=== PATIENT | male | born 2000 | race African-American/Black ===

== ENCOUNTER 2018-11-18 11:57 | Outpatient (CLI) | payer OTHER | END 2018-11-18 11:58 | disposition critical access hospital (66) | LOC: EMS 11:57 | PROVIDERS: ATTEND Surgery | DX: R06.00 Dyspnea, unspecified (principal); R07.9 Chest pain, unspecified; R19.7 Diarrhea, unspecified | CPT/HCPCS: A0425; A0427 ==

== ENCOUNTER 2018-11-18 12:28 | Emergency (ER) | payer OTHER ==
[2018-11-18] MEDS ORDERED: IOVERSOL 320 100 ML VIAL IVP ONE ×4 (12:29→17:03)
--- NOTE | 2018-11-18 12:41 | ED Physician Documentation ---
History of Present Illness - Stated complaint Stated Complaint: DIFF BREATHING - History obtained from History obtained from: Patient - History of Present Illness Timing: Prior to arrival - Additonal information Additional information: Patient is a previously healthy 18-year-old [place] and mild hypoxia. Patient denies any history of asthma or other pulmonary issues. Patient states that he was generally feeling unwell over the last day or so and thought he may have had a panic attack last night and therefore [place] Patient reports productive cough, difficulty breathing, but no fever, chills, or chest pain. Patient also denies abdominal pain or urinary changes, but reports mild diarrhea.Patient received nebulizer treatment in route, which he reports improved his symptoms.No other improving or worsening factors noted. Review of Systems Constitutional: denies: Fever Respiratory: reports: Dyspnea, Cough GI: reports: Diarrhea. denies: Abdominal Pain, Vomiting : denies: Dysuria PD PAST MEDICAL HISTORY - Past Medical History Past Medical History: No - Past Surgical History Past Surgical History: No - Present Medications Home Medications: Ambulatory Orders Medication Instructions Recorded Confirmed Azithromycin 250 mg PO DAILY 4 Days #4 tab 11/18/18 - Allergies Allergies/Adverse Reactions: Allergies Allergy/AdvReac Type Severity Reaction Status Date / Time No Known Drug Allergies Allergy Verified 11/18/18 12:42 PD ED PE NORMAL - Vitals Vital signs reviewed: Yes - General General: Alert and oriented X 3, No acute distress, Well developed/nourished, Other (Speaking in full sentences) - HEENT HEENT: Atraumatic, Moist mucous membranes, Pharynx benign - Cardiac Cardiac: RRR, No murmur - Respiratory Respiratory: No respiratory distress. No: Clear bilaterally (Breath sounds present bilaterally but with significant expiratory wheezing throughout) - Abdomen Abdomen: Soft, Non tender, Non distended - Derm Derm: Normal color, Warm and dry, No rash - Extremities Extremities: No deformity, No tenderness to palpate - Neuro Neuro: Alert and oriented X 3, No motor deficit, No sensory deficit - Psych Psych: Normal mood, Normal affect Results - Vitals Vitals: Vital Signs - 24 hr 11/18/18 11/18/18 11/18/18 12:39 13:20 13:24 Temperature 37.2 C Heart Rate 103 H 100 96 Respiratory 28 H 15 21 Rate Blood Pressure 156/75 H O2 Saturation 90 L 95 11/18/18 11/18/18 11/18/18 14:20 14:34 14:39 Temperature 36.7 C Heart Rate 89 86 Respiratory 20 19 Rate Blood Pressure 146/61 H O2 Saturation 90 L 94 11/18/18 11/18/18 11/18/18 16:00 17:03 17:26 Temperature Heart Rate 93 89 Respiratory 18 18 Rate Blood Pressure 146/89 H 141/94 H O2 Saturation 93 92 92 Oxygen O2 Source Nasal cannula Oxygen Flow Rate 3 - EKG (time done) 1234 Rate: Rate (enter#) (103) Rhythm: NSR Ischemia: Non specific changes - Labs Labs: Laboratory Tests 11/18/18 11/18/18 11/18/18 14:30 14:30 14:30 WBC 17.2 H RBC 5.23 Hgb 16.3 Hct 45.3 MCV 86.6 MCH 31.2 H MCHC 36.0 RDW 12.8 Plt Count 262 MPV 12.2 H Neut # (Auto) 13.8 H Lymph # (Auto) 2.2 [place] # (Auto) 0.7 Eos # (Auto) 0.2 Baso # (Auto) 0.1 Absolute Nucleated RBC 0.00 Nucleated RBC % 0.0 Sodium 138 Potassium 3.8 Chloride 105 Carbon Dioxide 24 Anion Gap 9.0 BUN 14 Creatinine 1.1 Estimated GFR (MDRD) 103 Glucose 97 Calcium 9.4 Total Bilirubin 1.4 H AST 22 ALT 20 Alkaline Phosphatase 46 Troponin I < 0.04 Total Protein 8.0 Albumin 4.3 Globulin 3.7 Albumin/Globulin Ratio 1.2 Lipase 24 PD MEDICAL DECISION MAKING - ED course Complexity details: reviewed results, re-evaluated patient, considered differential, d/w patient ED course: Patient presenting with hypoxia and difficulty breathing without known exposures, although patient later admits to usage of vape and tobacco. Patient denies history of asthma, but has significant wheezing both inspiratory and expiratory on exam. Patient received an nebulizer treatment in route and received several more in addition to magnesium and Solu-Medrol in the ED. Chest x-ray found inflammatory changes likely reactive. Patient continued to require supplemental oxygen and given his continued knee, felt appropriate to further evaluate. EKG did not find evidence of ischemic changes. Screening lab work including troponin returned relatively unremarkable except for leukocytosis. CT angios chest obtained to further evaluate for etiologies including PE. CT found evidence of bilateral patchy infiltrates, but no PE.Patient started on both Cipro and azithromycin in the ED and eventually weaned off of oxygen. Discussed results and recommendations with patient including use of antibiotics at home, strict return precautions, and need for close follow-up with his primary care physician. Patient voiced understanding and is comfortable with discharge plan. Departure - Departure Disposition: 01 Home, Self Care Clinical Impression: Pneumonia Qualifiers: Pneumonia type: due to unspecified organism Laterality: bilateral Lung location: unspecified part of lung Qualified Code(s): J18.9 - Pneumonia, unspecified organism Condition: Good Instructions: ED Pneumonia Adult Follow-Up: your,doctor [Other] - Within 3 Days Prescriptions: Azithromycin 250 mg PO DAILY 4 Days #4 tab Comments: Please start taking azithromycin as prescribed tomorrow as you have received your antibiotics for today in the ED. Please follow-up closely with your primary care physician in the next 1 to 2 days. Return to ED sooner if experience any worsening symptoms or have other concerns.
[2018-11-18] MEDS ORDERED: MAGNESIUM SULFATE 2 GRAM 2 GM/50 ML BAG IV ONE (12:51)
[2018-11-18] MEDS ORDERED: IPRATROPIUM/ALBUTEROL 3 ML NEB INH STA ×2 (12:51→14:24)
[2018-11-18] MEDS ORDERED: methylPREDNISolone SUCCINATE 125 MG/2 ML VIAL IVP STA (12:52)
--- NOTE | 2018-11-18 13:29 | XRAY Report ---
Reason: cough Procedure Date: 11/18/2018 Accession Number: [id number] / [id number] Procedure: XR - Chest 2 View X-Ray CPT Code: 46932 FULL RESULT: EXAM: CHEST RADIOGRAPHY EXAM DATE: 11/18/2018 01:21 PM. CLINICAL HISTORY: Cough. COMPARISON: None. TECHNIQUE: 2 views. FINDINGS: Lungs/Pleura: Bilateral airway thickening can be seen in the setting of bronchiolitis or reactive airways disease. No focal lung parenchymal consolidation identified to suggest superimposed pneumonia. No pleural effusion or pneumothorax. Mediastinum: There is increasing density in both hilar regions suggestive of adenopathy. There is no cardiomegaly. Other: None. IMPRESSION: Radiograph suggestive of airway thickening and bilateral lymphadenopathy. RADIA
[2018-11-18 14:54] LABS: BASOPHILS # (AUTO) 0.1 10^3/uL (0.0-0.1); BASOPHILS % (AUTO) 0.8 %; EOSINOPHILS # (AUTO) 0.2 10^3/uL (0.0-0.7); EOSINOPHILS % (AUTO) 1.3 %; HGB - HEMOGLOBIN 16.3 g/dL (14.0-18.0); LYMPHOCYTES # (AUTO) 2.2 10^3/uL (1.5-3.5); LYMPHOCYTES % (AUTO) 12.6 %; MEAN CORPUSCULAR HEMOGLOBIN 31.2 pg (27.0-31.0); MEAN CORPUSCULAR VOLUME 86.6 fL (80.0-94.0); MEAN PLATELET VOLUME 12.2 fL (7.4-11.4); MONOCYTES # (AUTO) 0.7 10^3/uL (0.0-1.0); MONOCYTES % (AUTO) 4.3 %; NEUTROPHILS # (AUTO) 13.8 10^3/uL (1.5-6.6); NEUTROPHILS % (AUTO) 80.4 %; PLT - PLATELET COUNT 262 10^3/uL (130-450); RED BLOOD COUNT 5.23 10^6/uL (4.70-6.10); RED CELL DISTRIBUTION WIDTH 12.8 % (12.0-15.0); WHITE BLOOD COUNT 17.2 x10^3/uL (4.8-10.8)
[2018-11-18 15:20] LABS: ALBUMIN 4.3 g/dL (3.2-5.5); ALBUMIN/GLOBULIN RATIO 1.2 (1.0-2.2); BILIRUBIN,TOTAL 1.4 mg/dL (0.2-1.0); CALCIUM 9.4 mg/dL (8.5-10.3); CREATININE 1.1 mg/dL (0.6-1.2)
--- NOTE | 2018-11-18 16:45 | CT Report ---
Reason: SOB, hypoxia, concern for PE Procedure Date: 11/18/2018 Accession Number: [id number] / [id number] Procedure: CT - ANGIO CHEST W/WO CPT Code: FULL RESULT: EXAM: CT ANGIOGRAM CHEST EXAM DATE: 11/18/2018 03:55 PM. CLINICAL HISTORY: Shortness of breath. Hypoxia. COMPARISON: CHEST 2 VIEW 11/18/2018 1:05 PM. TECHNIQUE: Routine helical imaging was performed through the chest in the pulmonary arterial phase. IV Contrast: 70 cc of Optiray 320. Reconstructions: Coronal 3-D MIP reconstructions.Sagittal and coronal. In accordance with CT protocol optimization, one or more of the following dose reduction techniques were utilized for this exam: automated exposure control, adjustment of mA and/or KV based on patient size, or use of iterative reconstructive technique. FINDINGS: Pulmonary Arteries: Diagnostic quality: Adequate through the segmental arteries. No evidence for acute or chronic pulmonary emboli. RV/LV is within normal limits. There is no interventricular septal bowing. There is no reflux of contrast material in the IVC. Lungs/Pleura: Small patchy infiltrates in the medial perihilar right upper lobe, lingula, central right lower lobe and left lower lobe, and medial right middle lobe. No consolidation, nodules, or edema. No effusions or pneumothorax. Mediastinum: Normal. No cardiac enlargement or adenopathy. Thoracic Aorta: Unremarkable. Upper Abdomen: Unremarkable. Other: None. IMPRESSION: 1. No pulmonary emboli. 2. No aortic aneurysm. 3. Patchy widespread bilateral pulmonary infiltrates. RADIA
[2018-11-18] MEDS ORDERED: AZITHROMYCIN INJ 500 MG in SODIUM CHLORIDE 0.9% 250 ML IV STA (16:47)
[2018-11-18] MEDS ORDERED: cefTRIAXone 1 GM VIAL IVP STA (16:47)
[2018-11-18 18:26] VITALS: BP 157/88
== END 2018-11-18 18:50 | disposition home or self-care (01) ==
LOC: ED 12:28
DX: J18.9 Pneumonia, unspecified organism (principal); R09.02 Hypoxemia; R00.0 Tachycardia, unspecified; I49.1 Atrial premature depolarization; Z72.0 Tobacco use
CPT/HCPCS: 36415; 71046; 71275; 80053; 83690; 84484; 85025; 93005; 94640; 96365; 96367; 96375; 99284; Q9967

== ENCOUNTER 2018-11-27 08:50 | Emergency (ER) | payer OTHER ==
[2018-11-27] MEDS ORDERED: CHERRY SYRUP 10 ML UDC PO ONE (10:00)
[2018-11-27] MEDS ORDERED: DEXAMETHASONE 10 MG/ML VIAL PO STA (10:00)
[2018-11-27] MEDS ORDERED: ALBUTEROL NEB 2.5 MG/3 ML INH STA ×2 (10:00→10:27)
[2018-11-27] MEDS ORDERED: DOXYCYCLINE 100 MG TABLET PO STA (10:01)
--- NOTE | 2018-11-27 10:32 | XRAY Report ---
Reason: dyspnea/ cough Procedure Date: 11/27/2018 Accession Number: [id number] / [id number] Procedure: XR - Chest 2 View X-Ray CPT Code: 68587 FULL RESULT: EXAM: CHEST RADIOGRAPHY EXAM DATE: 11/27/2018 10:15 AM. CLINICAL HISTORY: Dyspnea/ cough. COMPARISON: CHEST 2 VIEW 11/18/2018 1:05 PM CHEST ANGIO 11/18/2018 3:37 PM. TECHNIQUE: 2 views. FINDINGS: Lungs/Pleura: No focal consolidation. Previous subtle lingular and right middle lobe opacities have improved. No pleural effusion. No pneumothorax. Normal volumes. Mediastinum: Heart and mediastinal contours are normal. Other: None. IMPRESSION: No acute cardiopulmonary abnormality. Improved pulmonary opacities from prior. RADIA
[2018-11-27 11:42] VITALS: BP 137/90
--- NOTE | 2018-11-27 11:50 | ED Physician Documentation ---
PD HPI URI - Stated complaint Stated Complaint: SOA - Chief complaint Chief Complaint: Resp - History obtained from History obtained from: Patient - History of Present Illness Timing - onset: How many days ago (2 days of increased cough and trouble breathing after finishing abx. Had cough and dyspnea the past 10-14 days prior to that and was seen in ER a week ago, and Rx Zpack after Dx of pneumonia based on chest CT/CXR.) Timing duration: Weeks (2) Timing details: Gradual onset, Still present, Waxing and waning (was feeling better with abx but not all improved, and then symptoms again the past 2 days.) Associated symptoms: Productive cough, Dyspnea. No: Fever, Swollen nodes, Hemoptysis, NVD Contributing factors: COPD / asthma. No: Sick contact Similar symptoms before: Has not had sx before Recently seen: Emergency Dept (a week ago with Dx of pneumonia, with nebulizers x 3 in ER, and Rx zpack (no inhaler nor steroids)) Review of Systems Constitutional: reports: Myalgias. denies: Fever, Chills Nose: reports: Congestion. denies: Rhinorrhea / runny nose Throat: denies: Sore throat Cardiac: denies: Chest pain / pressure, Palpitations Respiratory: reports: Dyspnea, Cough, Wheezing GI: denies: Nausea, Vomiting, Diarrhea Skin: denies: Rash, Lesions PD PAST MEDICAL HISTORY - Past Medical History Respiratory: Pneumonia - Past Surgical History Past Surgical History: No - Present Medications Home Medications: Ambulatory Orders Medication Instructions Recorded Confirmed Albuterol Sulf [Ventolin Hfa 2 - 3 puffs INH Q4HR PRN #1 inhaler 11/27/18 Inhaler] Benzonatate [Tessalon Perle] 100 mg PO TID PRN #20 capsule 11/27/18 Doxycycline Hyclate 100 mg PO BID #14 capsule 11/27/18 dexAMETHasone [Decadron] 4 mg PO DAILY #5 tablet 11/27/18 - Allergies Allergies/Adverse Reactions: Allergies Allergy/AdvReac Type Severity Reaction Status Date / Time No Known Drug Allergies Allergy Verified 11/27/18 09:04 - Social History Does the pt smoke?: No Smoking Status: Never smoker Does the pt drink ETOH?: No Does the pt have substance abuse?: No - Immunizations Immunizations are current?: Yes - POLST Patient has POLST: No PD ED PE NORMAL - Vitals Vital signs reviewed: Yes - General General: Alert and oriented X 3, Well developed/nourished, Other (seems tight breathing and some work of breathing. ) - HEENT HEENT: Ears normal, Pharynx benign - Neck Neck: Supple, no meningeal sign, No adenopathy - Cardiac Cardiac: RRR, No murmur - Respiratory Respiratory: No: Clear bilaterally (no coarse sounds, but with diffuse moderate wheezing with diminished tidal volume. ) - Derm Derm: Normal color, Warm and dry - Extremities Extremities: No tenderness to palpate, Normal ROM s pain, No edema, No calf tenderness / cord - Neuro Neuro: Alert and oriented X 3, No motor deficit, Normal speech Results - Vitals Vitals: Vital Signs - 24 hr 11/27/18 11/27/18 11/27/18 09:01 09:33 10:18 Temperature 36.8 C Heart Rate 85 89 83 Respiratory 20 24 22 Rate Blood Pressure 161/74 H 135/100 H O2 Saturation 97 95 11/27/18 11/27/18 10:47 11:41 Temperature Heart Rate 83 79 Respiratory 20 20 Rate Blood Pressure 137/90 H O2 Saturation 96 Oxygen O2 Source Room air - Rads (name of study) chest xray Radiology: Prelim report reviewed (no infiltrates), See rad report PD MEDICAL DECISION MAKING - ED course Complexity details: reviewed results (no pneumonia), re-evaluated patient (much improved breathing after 2 nebs. Feels better. ), considered differential, d/w patient Departure - Departure Disposition: 01 Home, Self Care Clinical Impression: Pneumonia Qualifiers: Pneumonia type: due to unspecified organism Laterality: unspecified laterality Lung location: unspecified part of lung Qualified Code(s): J18.9 - Pneumonia, unspecified organism Dyspnea Qualifiers: Dyspnea type: shortness of breath Qualified Code(s): R06.02 - Shortness of breath Condition: Stable Record reviewed to determine appropriate education?: Yes Instructions: ED Bronchitis Asthmatic Follow-Up: HUNTER SANTACRUZ MD [Primary Care Provider] - Prescriptions: Albuterol Sulf [Ventolin Hfa Inhaler] 2 - 3 puffs INH Q4HR PRN #1 inhaler PRN Reason: Shortness Of Air/Wheezing Benzonatate [Tessalon Perle] 100 mg PO TID PRN #20 capsule PRN Reason: Cough dexAMETHasone [Decadron] 4 mg PO DAILY #5 tablet Doxycycline Hyclate 100 mg PO BID #14 capsule Comments: Use the albuterol inhaler 2 puffs 4 times a day regularly for the next 7 to 10 days and extra times as needed. Decadron steroid for inflammation of the airways daily for 5 more days. Doxycycline antibiotic for a week. Add Tessalon if needed for cough suppression. Stay well-hydrated. Off work for a day or 2. Recheck if not improving well over the next couple of days. Forms: Activity restrictions Discharge Date/Time: 11/27/18 12:04
== END 2018-11-27 12:04 | disposition home or self-care (01) ==
LOC: ED 08:50
DX: J18.9 Pneumonia, unspecified organism (principal)
CPT/HCPCS: 71046; 94640; 94664; 99283; 99284; A9270

== ENCOUNTER 2019-03-08 13:29 | Emergency (ER) | payer OTHER ==
[2019-03-08 13:38] VITALS: BP 128/79
[2019-03-08] MEDS ORDERED: ONDANSETRON ODT 4 MG TABLET TL STA (13:57)
[2019-03-08] MEDS ORDERED: LOPERAMIDE 2 MG CAPSULE PO STA (13:57)
[2019-03-08 14:16] LABS: BASOPHILS # (AUTO) 0.1 10^3/uL (0.0-0.1); BASOPHILS % (AUTO) 0.9 %; EOSINOPHILS # (AUTO) 0.6 10^3/uL (0.0-0.7); EOSINOPHILS % (AUTO) 5.1 %; HGB - HEMOGLOBIN 15.5 g/dL (14.0-18.0); LYMPHOCYTES % (AUTO) 17.6 %; MEAN CORPUSCULAR HEMOGLOBIN 31.1 pg (27.0-31.0); MEAN CORPUSCULAR HGB CONC 34.8 g/dL (32.0-36.0); MEAN CORPUSCULAR VOLUME 89.4 fL (80.0-94.0); MEAN PLATELET VOLUME 11.6 fL (7.4-11.4); MONOCYTES % (AUTO) 8.8 %; NEUTROPHILS # (AUTO) 7.8 10^3/uL (1.5-6.6); NEUTROPHILS % (AUTO) 67.2 %; PLT - PLATELET COUNT 265 10^3/uL (130-450); RED BLOOD COUNT 4.99 10^6/uL (4.70-6.10); RED CELL DISTRIBUTION WIDTH 12.8 % (12.0-15.0); WHITE BLOOD COUNT 11.6 x10^3/uL (4.8-10.8)
[2019-03-08 14:27] LABS: ALBUMIN 4.3 g/dL (3.2-5.5); ALBUMIN/GLOBULIN RATIO 1.3 (1.0-2.2); BILIRUBIN,TOTAL 0.9 mg/dL (0.2-1.0); CALCIUM 9.6 mg/dL (8.5-10.3); CREATININE 1.2 mg/dL (0.6-1.2); TOTAL PROTEIN 7.5 g/dL (6.7-8.2)
--- NOTE | 2019-03-08 14:54 | ED Physician Documentation ---
PD HPI NVD - Stated complaint Stated Complaint: V/D - Chief complaint Chief Complaint: Abd Pain - History obtained from History obtained from: Patient - History of Present Illness Timing - onset: Last night (He and his significant other became sick several hours after eating a burrito at [employer] last night. He is had vomiting and diarrhea. He is improving. His central and upper abdominal pain. No fevers. No recent travel. His significant other also had similar symptoms. On the time of my evaluation he is already been treated with Zofran and Imodium. He is already passed a p.o. challenge.) Review of Systems Ten Systems: 10 systems reviewed and negative Constitutional: denies: Fever, Chills Respiratory: reports: Reviewed and negative GI: denies: Abdominal Swelling, Constipation, Hematemesis, Bloody / black stool PD PAST MEDICAL HISTORY - Past Medical History Respiratory: Pneumonia - Past Surgical History Past Surgical History: No - Present Medications Home Medications: Ambulatory Orders Medication Instructions Recorded Confirmed Albuterol Sulf [Ventolin Hfa 2 - 3 puffs INH Q4HR PRN #1 inhaler 11/27/18 Inhaler] Benzonatate [Tessalon Perle] 100 mg PO TID PRN #20 capsule 11/27/18 Doxycycline Hyclate 100 mg PO BID #14 capsule 11/27/18 dexAMETHasone [Decadron] 4 mg PO DAILY #5 tablet 11/27/18 Loperamide [Imodium] 2 mg PO QID PRN #10 capsule 03/08/19 Ondansetron Odt [Zofran] 4 mg TL Q6H PRN #10 tablet 03/08/19 - Allergies Allergies/Adverse Reactions: Allergies Allergy/AdvReac Type Severity Reaction Status Date / Time No Known Drug Allergies Allergy Verified 03/08/19 13:33 - Social History Does the pt smoke?: No Smoking Status: Never smoker Does the pt drink ETOH?: No Does the pt have substance abuse?: No - Immunizations Immunizations are current?: Yes - POLST Patient has POLST: No PD ED PE NORMAL - Vitals Vital signs reviewed: Yes - General General: Alert and oriented X 3, No acute distress - Abdomen Abdomen: Normal bowel sounds, Soft, Non tender - Neuro Neuro: Alert and oriented X 3, Normal speech - Psych Psych: Normal mood, Normal affect Results - Vitals Vitals: Vital Signs - 24 hr 03/08/19 13:33 Temperature 37.1 C Heart Rate 80 Respiratory 16 Rate Blood Pressure 128/79 O2 Saturation 100 Oxygen O2 Source Room air - Labs Labs: Laboratory Tests 03/08/19 03/08/19 14:09 14:09 WBC 11.6 H RBC 4.99 Hgb 15.5 Hct 44.6 MCV 89.4 MCH 31.1 H MCHC 34.8 RDW 12.8 Plt Count 265 MPV 11.6 H Neut # (Auto) 7.8 H Lymph # (Auto) 2.0 [place] # (Auto) 1.0 Eos # (Auto) 0.6 Baso # (Auto) 0.1 Absolute Nucleated RBC 0.00 Nucleated RBC % 0.0 Sodium 142 Potassium 4.1 Chloride 104 Carbon Dioxide 27 Anion Gap 11.0 BUN 11 Creatinine 1.2 Estimated GFR (MDRD) 93 Glucose 97 Calcium 9.6 Total Bilirubin 0.9 AST 23 ALT 26 Alkaline Phosphatase 52 Total Protein 7.5 Albumin 4.3 Globulin 3.2 Albumin/Globulin Ratio 1.3 Lipase 25 PD MEDICAL DECISION MAKING - ED course ED course: 19-year-old gentleman with gastroenteritis versus food poisoning. There is no abdominal tenderness but he was given appendicitis precautions. Departure - Departure Disposition: 01 Home, Self Care Clinical Impression: Food poisoning Condition: Good Record reviewed to determine appropriate education?: Yes Instructions: ED Vomiting Diarrhea Nonspecific Ad Prescriptions: Loperamide [Imodium] 2 mg PO QID PRN #10 capsule PRN Reason: Diarrhea Ondansetron Odt [Zofran] 4 mg TL Q6H PRN #10 tablet PRN Reason: Nausea / Vomiting Comments: Return if not better tomorrow morning, anytime if worse, if you develop a fever. Or if pain moved to the right lower quadrant where I showed you. Forms: Activity restrictions
== END 2019-03-08 15:20 | disposition home or self-care (01) ==
LOC: ED 13:29
DX: A05.9 Bacterial foodborne intoxication, unspecified (principal)
CPT/HCPCS: 36415; 80053; 83690; 85025; 99283; A9270; Q0162

== ENCOUNTER 2020-07-18 19:28 | Emergency (ER) | payer OTHER ==
[2020-07-18] MEDS ORDERED: ALBUTEROL 1 PUFF INH STA (19:50)
--- NOTE | 2020-07-18 19:55 | ED Physician Documentation ---
PD HPI DYSPNEA - Stated complaint Stated Complaint: MED REFILL/INHALERS - Chief complaint Chief Complaint: General - History obtained from History obtained from: Patient - History of Present Illness Timing - onset: Last night Timing - onset during: Rest Timing - duration: Hours Timing - details: Gradual onset, Still present Inciting event(s): Out of meds Improved by: Inhaler/neb Worsened by: Exertion Associated symptoms: Wheezing. No: Fever, Cough, Hemoptysis, Palpitations, Diaphoresis, Bilateral edema, Unilateral edema, Anxiety Similar symptoms before: Diagnosis (asthma) Recently seen: Not recently seen - Additional information Additional information: 20-year-old male with a 2-year history of asthma has been on an albuterol in haler and Advair and he has done well on these unless he runs out. He does note that after 12 or 13 hours he notices that his Advair is worn off and requires a second use of his inhaler. He does not think that there has been any increase in his use of his rescue inhaler over the past 6 weeks. He knew he was running out of his Advair and attempted to get an appointment to be seen starting about 6 weeks ago but he has not been able to get in to be seen at the clinic. He now presents to the emergency department having run out of his Advair. Review of Systems Constitutional: denies: Fever Eyes: denies: Decreased vision Ears: denies: Ear pain Nose: denies: Rhinorrhea / runny nose, Congestion Throat: denies: Sore throat Cardiac: denies: Chest pain / pressure, Palpitations Respiratory: reports: Dyspnea (with exertion). denies: Cough GI: denies: Abdominal Pain, Nausea, Vomiting : denies: Dysuria, Frequency Skin: denies: Rash Musculoskeletal: denies: Neck pain, Back pain, Extremity pain Neurologic: denies: Generalized weakness, Focal weakness, Numbness PD PAST MEDICAL HISTORY - Past Medical History Past Medical History: Yes Respiratory: Asthma, Pneumonia - Past Surgical History Past Surgical History: No - Present Medications Home Medications: Ambulatory Orders Medication Instructions Recorded Confirmed Albuterol Sulf [Ventolin Hfa 2 - 3 puffs INH Q4HR PRN #1 inhaler 11/27/18 07/18/20 Inhaler] Albuterol Sulf [Ventolin Hfa 1 - 2 puffs INH Q4HR PRN #1 inhaler 07/18/20 Inhaler] Fluticasone/Salmeterol [Advair Hfa 2 puffs IH BID #1 inhaler 07/18/20 45-21 Mcg Inhaler] Fluticasone/Salmeterol [Advair Hfa 2 puffs INH BID 07/18/20 07/18/20 45-21 Mcg Inhaler] - Allergies Allergies/Adverse Reactions: Allergies Allergy/AdvReac Type Severity Reaction Status Date / Time No Known Drug Allergies Allergy Verified 07/18/20 19:31 - Social History Does the pt smoke?: No Smoking Status: Never smoker Does the pt drink ETOH?: No Does the pt have substance abuse?: No - Immunizations Immunizations are current?: Yes - POLST Patient has POLST: No PD ED PE NORMAL - Vitals Vital signs reviewed: Yes (hypertensive ) - General General: Alert and oriented X 3, No acute distress, Well developed/nourished - HEENT HEENT: Atraumatic, PERRL, EOMI, Ears normal, Moist mucous membranes, Pharynx benign - Neck Neck: Supple, no meningeal sign, No bony TTP - Cardiac Cardiac: RRR, No murmur - Respiratory Respiratory: No respiratory distress, Clear bilaterally - Abdomen Abdomen: Normal bowel sounds, Soft, Non tender, Non distended, No organomegaly - Back Back: No CVA TTP, No spinal TTP - Derm Derm: Normal color, Warm and dry, No rash - Extremities Extremities: No deformity, No edema - Neuro Neuro: Alert and oriented X 3, property insurance agent 2-12 intact, No motor deficit, No sensory deficit, Normal speech Eye Opening: Spontaneous Motor: Obeys Commands Verbal: Oriented GCS Score: 15 - Psych Psych: Normal mood, Normal affect Results - Vitals Vitals: Vital Signs - 24 hr 07/18/20 07/18/20 19:33 19:34 Temperature 36.9 C 36.9 C Heart Rate 73 73 Respiratory 18 18 Rate Blood Pressure 180/90 H 180/90 H O2 Saturation 100 100 Oxygen O2 Source Room air PD MEDICAL DECISION MAKING - ED course Complexity details: considered differential, d/w patient ED course: 18-year-old male with a history of asthma has run out of his Advair he does not have his albuterol as well and he is now beginning to feel some tightness in his chest. His lung sound clear he is saturating 100% and he is not tachypneic. He is having some sub clinical symptoms and tonight we have given him a dose of albuterol as he will not be able to get his inhalers filled until tomorrow am. Departure - Departure Disposition: 01 Home, Self Care Clinical Impression: Asthma dependent on inhaled steroids Condition: Stable Instructions: ED Reactive Airway Disease, ED Inhaler Use Follow-Up: [facility] [Provider Group] Prescriptions: Albuterol Sulf [Ventolin Hfa Inhaler] 1 - 2 puffs INH Q4HR PRN #1 inhaler PRN Reason: Shortness Of Air/Wheezing Fluticasone/Salmeterol [Advair Hfa 45-21 Mcg Inhaler] 2 puffs IH BID #1 inhaler
[2020-07-18] MEDS ORDERED: DEXAMETHASONE 10 MG/ML VIAL PO STA (20:04)
[2020-07-18] MEDS ORDERED: CHERRY SYRUP 10 ML UDC PO ONE (20:04)
[2020-07-18 20:22] VITALS: BP 165/82
== END 2020-07-18 20:17 | disposition home or self-care (01) ==
LOC: ED 19:28
DX: J45.909 Unspecified asthma, uncomplicated (principal); Z79.51 Long term (current) use of inhaled steroids; Z76.0 Encounter for issue of repeat prescription
CPT/HCPCS: 94640; 94664; 99283; A9270